=== PATIENT | male | born 1960 | race African-American/Black ===

== ENCOUNTER 2016-08-10 14:57 | Emergency (ER) | payer SELFPAY ==
[~2016-08-10] VITALS: Ht 182.9 cm; Wt 88.5 kg
[2016-08-10 14:59] VITALS: BP 130/75
--- NOTE | 2016-08-10 15:12 | NUR ---
PT PROVIDED WITH CLOTHING, AND IS REFUSING RESOURCES AT THIS TIME
--- NOTE | 2016-08-10 15:23 | NUR ---
PT WALKING AROUND ER, YELLING AT STAFF AND THREATENING STAFF. REFUSING TO LEAVE. SECURITY AT BEDSIDE. PT STATES "THERE'S A GOOD REASON THEY CALL ME PUNCHY". MD AT BEDSIDE.
--- NOTE | 2016-08-10 16:20 | NUR ---
DISCHARGE PAPERWORK SIGNED AND GIVEN TO PT. PT REFUSES DISCHARGE VITAL SIGNS, CONTINUING TO CURSE AT AND YELL AT STAFF. PT ESCORTED FROM ER BY SECURITY.
== END 2016-08-10 16:22 | disposition home or self-care (01) ==
LOC: ER 14:59
DX: F41.9 Anxiety disorder, unspecified (principal)
CPT/HCPCS: A4606; Z7610

== ENCOUNTER 2019-08-06 23:18 | Emergency (ER) | payer MEDICAID, OTHER ==
[~2019-08-06] VITALS: Ht 175.3 cm; Wt 90.7 kg
[2019-08-06 23:18] VITALS: BP 159/102
== END 2019-08-07 01:02 | disposition home or self-care (01) ==
LOC: ER 23:18
DX: Z43.6 Encounter for attention to other artificial openings of urinary tract (principal); F32.9 Major depressive disorder, single episode, unspecified

== ENCOUNTER 2019-08-08 20:36 | Emergency (ER) | payer MEDICAID ==
[~2019-08-08] VITALS: Ht 175.3 cm; Wt 81.6 kg
[2019-08-08] MEDS ORDERED: LIDOCAINE 2% JEL UROJET 10 ML MM ONE ×2 (20:52→21:00)
[2019-08-08 21:16] LABS: APPEARANCE,URINE Cloudy (CLEAR); BILIRUBIN,URINE MODERATE (NEGATIVE); BLOOD, URINE Large Ery/uL (NEGATIVE); COLOR,URINE Brown (YELLOW); KETONES,URINE Trace (NEGATIVE); LEUKOCYTE ESTERASE ,URINE Negative (NEGATIVE); NITRITE, URINE Positive (NEGATIVE); PROTEIN,URINE 100 mg/dl (NEGATIVE); UGLUCOSE Negative (NEGATIVE)
[2019-08-08 21:26] LABS: BASOPHILS # (AUTO) 0.1 /CMM (0.0-0.2); BASOPHILS % (AUTO) 0.7 % (0.0-2.0); EOSINOPHILS % (AUTO) 0.5 % (0.0-6.0); HEMATOCRIT 37 % (39-51); HEMOGLOBIN 12.7 g/dL (13.5-17.5); LYMPHOCYTES % (AUTO) 13.8 % (20.0-44.0); MEAN CORPUSCULAR HGB CONC 34 g/dl (31.0-36.0); MEAN CORPUSCULAR VOLUME 94 fL (80-96); MONOCYTES # (AUTO) 0.5 /CMM (0.1-1.30); MONOCYTES % (AUTO) 7.4 % (2.0-12.0); NEUTROPHILS # (AUTO) 5.5 /CMM (1.8-8.9); NEUTROPHILS % (AUTO) 77.6 % (43.0-81.0); PLATELET COUNT (AUTO) 250 /CMM (150-450); RED BLOOD CELL COUNT(AUTO) 3.93 MIL/uL (4.5-6.0); WHITE BLOOD COUNT (AUTO) 7.1 K/uL (4.3-11.0)
[2019-08-08] MEDS ORDERED: MORPHINE SULFATE INJ 2 MG/ML DISP.SYRIN IV ONE (21:30)
[2019-08-08] MEDS ORDERED: ONDANSETRON HCL/PF 4 MG/2 ML VIAL IVP ONE (21:30)
[2019-08-08] MEDS ORDERED: IV NS 0.9% 1,000 ML BAG IV ONE (21:30)
[2019-08-08 21:33] LABS: CALCIUM, SERUM 8.9 mg/dL (8.5-10.1); CREATININE 1.8 mg/dL (0.6-1.3); POTASSIUM 3.8 mmol/L (3.5-5.1)
[2019-08-08 21:36] LABS: RBC,URINE TOO NUMEROUS TO COUN /HPF (0-2)
[2019-08-08 21:37] LABS: BACTERIA,URINE 3+ /HPF (None Seen); SQUAMOUS EPITHELIAL CELL,UR Few /HPF (None Seen)
[2019-08-08 21:39] LABS: ALBUMIN 3.6 g/dL (3.4-5.0); BILIRUBIN,DIRECT 0.1 mg/dL (0.0-0.2); BILIRUBIN,TOTAL 0.3 mg/dL (0.2-1.0); TOTAL PROTEIN, SERUM 7.2 g/dL (6.4-8.2)
--- NOTE | 2019-08-08 21:43 | NUR ---
BIBS TO ER BED 12. AAOX4. NOT IN RESP DISTRESS. AMBULATORY. CAME IN FOR PUBIC PAIN D/T NO URINE OUTPUT FOR THE ENTIRE DAY. PT REPORTS THAT HE HAS ACATHERTER AND REMOVED IT EARLIER. FREDY CORTEZ WAS AT BEDSIDE FOR EVAL. ALCALA CATH INSERTED ORDERED WITH STRICT STERILE TECHNIQUE DURINF PROCEDURE. URINE NOTED BROWN AND CLOUDY. SENT TO LAB FOR TESTING. IV LINE OBTAINED ON L AC 18G, BLOOD DRAWN AND GIVEN TO RADIATION THERAPIST AT BEDSIDE. PT IS RELIEVED OF PAIN UPON INSERTION AND DRAINING URINE. OUTPUT NOTED AT 700ML. MADE AWARE. WILL CONTINUE TO MONITOR
[2019-08-08] MEDS ORDERED: ONDANSETRON HCL/PF 4 MG/2 ML VIAL ONE (21:48)
[2019-08-08] MEDS ORDERED: MORPHINE SULFATE INJ 4 MG/ML DISP.SYRIN ONE (21:49)
--- NOTE | 2019-08-08 21:50 | NUR ---
pt is not in pain at the time of administration. made aware and cancelled the give to meds
[2019-08-08] MEDS ORDERED: CEFTRIAXONE 1GM BAG (ER ONLY) 50 ML IV ONE (22:24)
[2019-08-08] MEDS ORDERED: CEFTRIAXONE 1GM BAG (ER ONLY) 1 GM/50 ML PIGGYBACK IV ONE (22:30)
--- NOTE | 2019-08-08 23:34 | NUR ---
Patient discharged to home in stable condition. Written and verbal after care instructions given. Patient verbalizes understanding of instruction.IV removed. Catheter intact and site benign. Pressure and 4x4 applied to site. No bleeding noted. Pt ambulatory with a steady gait
--- NOTE | 2019-08-08 23:40 | NUR ---
HOMELESS WAIVER SIGNED BY THE PT. FOOD PROVIDED AND TAP CARD
--- NOTE | 2019-08-08 23:41 | NUR ---
PT DISPENSED WITH LEG BAG AND CARE INSTRUCTION GIVEN TO PT. PT VERBALIZED UNDERSTANDING OF CATHETER CARE BY VERBALIZING BACK THE INSTRUCTION
[2019-08-08 23:42] VITALS: BP 143/92
== END 2019-08-08 23:43 | disposition home or self-care (01) ==
LOC: ER 20:41
DX: N28.9 Disorder of kidney and ureter, unspecified (principal); R33.9 Retention of urine, unspecified; N40.0 Benign prostatic hyperplasia without lower urinary tract symptoms; I10 Essential (primary) hypertension
CPT/HCPCS: 36415; 51702; 80048; 80076; 81001; 82550; 85025; 87086; 96374; 99284; J0696; J3490; J7030 ×2; 81000-TC; 82553; 87186-TC; J2270; J2405

== ENCOUNTER 2019-09-26 13:08 | Emergency (ER) | payer OTHER ==
[~2019-09-26] VITALS: Ht 170.2 cm; Wt 99.8 kg
[2019-09-26] MEDS ORDERED: LIDOCAINE 2% JEL UROJET 10 ML MM ONE (13:14)
[2019-09-26] MEDS ORDERED: HYDROCODONE/APAP 5/325MG TABLET PO ONE (13:30)
[2019-09-26 13:31] LABS: APPEARANCE,URINE CLOUDY (CLEAR); BILIRUBIN,URINE Negative (NEGATIVE); BLOOD, URINE Large Ery/uL (NEGATIVE); COLOR,URINE Yellow (YELLOW); KETONES,URINE Negative (NEGATIVE); LEUKOCYTE ESTERASE ,URINE Small (NEGATIVE); NITRITE, URINE Positive (NEGATIVE); PH,URINE 5.5 (5.0-8.0); PROTEIN,URINE 30 mg/dl (NEGATIVE); UGLUCOSE Negative (NEGATIVE); UROBILINOGEN,URINE 0.2 EU/dL (0.2)
[2019-09-26] MEDS ORDERED: HYDROCODONE/APAP 5/325MG TABLET ONE (13:31)
[2019-09-26 13:38] LABS: BACTERIA,URINE Few /HPF (None Seen); SQUAMOUS EPITHELIAL CELL,UR Few /HPF (None Seen); WBC,URINE 51-80 /HPF (0-3)
[2019-09-26] MEDS ORDERED: AMOX/CLAVULANATE 875 MG TABLET ONE (13:55)
[2019-09-26] MEDS ORDERED: AMOX/CLAVULANATE 875 MG TABLET PO ONE (14:00)
[2019-09-26 14:01] VITALS: BP 145/90
--- NOTE | 2019-09-26 14:02 | NUR ---
Naidu Cath in place draining cloudy UO-250cc. Converted drainage bag to leg bag. Pt instructed on use/change. For discharge Patient discharged to home in stable condition. Written and verbal after care instructions given. Patient verbalizes understanding of instruction.
== END 2019-09-26 14:02 | disposition home or self-care (01) ==
LOC: ER 13:10
DX: R33.9 Retention of urine, unspecified (principal); N30.00 Acute cystitis without hematuria; N40.0 Benign prostatic hyperplasia without lower urinary tract symptoms; Z59.0 Homelessness
CPT/HCPCS: 81001; 87086; 99283; J3490; 81000-TC; 87186-TC

== ENCOUNTER 2019-10-04 08:23 | Emergency (ER) | payer OTHER ==
[~2019-10-04] VITALS: Ht 177.8 cm; Wt 102.1 kg
--- NOTE | 2019-10-04 08:30 | NUR ---
CAME IN FOR LEAKING ALCALA CATHETER LEG BAG, TO ER BED 2, HOOKED TO MONITOR, CHANGED TO HOSP GOWN, WARM BLANKET PROVIDED, DR NICHOLE AT BEDSIDE
--- NOTE | 2019-10-04 08:39 | NUR ---
SEEN AND EXAMINED BY .
[2019-10-04 08:43] VITALS: BP 147/78
--- NOTE | 2019-10-04 09:10 | NUR ---
PT URINE SPECIMEN COLLECTED AND SENT TO LAB.
[2019-10-04 09:18] LABS: APPEARANCE,URINE Clear (CLEAR); BILIRUBIN,URINE Negative (NEGATIVE); BLOOD, URINE Small Ery/uL (NEGATIVE); COLOR,URINE Yellow (YELLOW); KETONES,URINE Negative (NEGATIVE); LEUKOCYTE ESTERASE ,URINE Trace (NEGATIVE); NITRITE, URINE Positive (NEGATIVE); PROTEIN,URINE 100 mg/dl (NEGATIVE); UGLUCOSE Negative (NEGATIVE)
[2019-10-04 09:27] LABS: BACTERIA,URINE Moderate /HPF (None Seen); RBC,URINE 0-2 /HPF (0-2); SQUAMOUS EPITHELIAL CELL,UR Few /HPF (None Seen)
[2019-10-04] MEDS ORDERED: LIDOCAINE /MPF 1% VIAL 5 ML VIAL ONE (09:43)
[2019-10-04] MEDS ORDERED: CEFTRIAXONE 1 G VIAL ONE (09:43)
[2019-10-04] MEDS ORDERED: CEFTRIAXONE 1 G VIAL IM ONE (10:00)
[2019-10-04] MEDS ORDERED: LIDOCAINE 2% 20 ML MDV TP ONE (10:00)
--- NOTE | 2019-10-04 10:27 | NUR ---
Patient discharged to home in stable condition. Written and verbal after care instructions given. Patient verbalizes understanding of instruction.
== END 2019-10-04 10:28 | disposition home or self-care (01) ==
LOC: ER 08:23
DX: N39.0 Urinary tract infection, site not specified (principal); T83.031A Leakage of indwelling urethral catheter, initial encounter; F32.9 Major depressive disorder, single episode, unspecified
CPT/HCPCS: 81001; 87086; 96372; 99283; J0696; J3490; 81000-TC; 87186-TC

== ENCOUNTER 2019-10-15 05:01 | Emergency (ER) | payer OTHER ==
[~2019-10-15] VITALS: Ht 175.3 cm; Wt 102.1 kg
[2019-10-15] MEDS ORDERED: LIDOCAINE 2% JEL UROJET 10 ML MM ONE (05:05)
--- NOTE | 2019-10-15 05:10 | NUR ---
PT AAOX4. AMBULATORY WITH STEDAY GAIT. BIBS C/O PULLED OUT HIS CATHETER AND INABILE TO URINATE. PLACED IN BED 7 ON MONITOR AND PULSE OX. VSS. NO ACUTE DISTRESS NOTED. AWAITING MD FOR EVAL AND ORDERS.
--- NOTE | 2019-10-15 05:12 | NUR ---
FR alexandra catheter inserted per sterile protocal. Immediate output 3220 ML of urine
[2019-10-15 05:40] LABS: APPEARANCE,URINE SL CLOUDY (CLEAR); BILIRUBIN,URINE NEGATIVE (NEGATIVE); BLOOD, URINE TRACE-INTA Ery/uL (NEGATIVE); COLOR,URINE YELLOW (YELLOW); KETONES,URINE NEGATIVE (NEGATIVE); LEUKOCYTE ESTERASE ,URINE TRACE (NEGATIVE); NITRITE, URINE NEGATIVE (NEGATIVE); PH,URINE 6.5 (5.0-8.0); PROTEIN,URINE TRACE mg/dl (NEGATIVE); UGLUCOSE NEGATIVE (NEGATIVE); UROBILINOGEN,URINE 0.2 EU/dL (0.2)
--- NOTE | 2019-10-15 05:45 | NUR ---
URINE COLLECTED AND SENT TO LAB
--- NOTE | 2019-10-15 05:45 | NUR ---
Patient is resting comfortably in bed. Easily aroused. VSS.
[2019-10-15 05:49] LABS: BACTERIA,URINE Few /HPF (None Seen); SQUAMOUS EPITHELIAL CELL,UR Rare /HPF (None Seen); WBC,URINE TOO NUMEROUS TO COUN /HPF (0-3)
[2019-10-15] MEDS ORDERED: CEFTRIAXONE 1GM BAG (ER ONLY) 50 ML IV ONE (06:22)
[2019-10-15] MEDS ORDERED: KETOROLAC TROMETHAMINE INJ 30 MG/ML VIAL IV ONE (06:30)
[2019-10-15] MEDS ORDERED: IV NS 0.9% 500 ML IV ONE (06:30)
[2019-10-15] MEDS ORDERED: CEFTRIAXONE 1 G in IV D5W 50 ML IV ONE (06:30)
[2019-10-15] MEDS ORDERED: KETOROLAC TROMETHAMINE 15 MG/ML VIAL ONE (06:32)
--- NOTE | 2019-10-15 07:00 | NUR ---
IVF NORMAL SALINE 500ML AND ROCEPHIN ENDTIME 0700H G20 RAC.
--- NOTE | 2019-10-15 07:03 | NUR ---
Urinary catheter leg bag placed. Awaiting fluids to finish. Pending discharge.
--- NOTE | 2019-10-15 07:16 | NUR ---
Patient discharged to home in stable condition. Written and verbal after care instructions given. Patient verbalizes understanding of instruction.
[2019-10-15 07:19] VITALS: BP 129/76
== END 2019-10-15 07:20 | disposition home or self-care (01) ==
LOC: ER 05:03
DX: N39.0 Urinary tract infection, site not specified (principal); R33.9 Retention of urine, unspecified; Z46.6 Encounter for fitting and adjustment of urinary device
CPT/HCPCS: 51702; 81001; 87077; 87086; 87186; 96365; 96375; 99284; J0696 ×2; J1885; J3490; J7040; J7060; 81000-TC; J7070

== ENCOUNTER 2019-11-20 18:55 | Emergency (ER) | payer MEDICAID, OTHER ==
[~2019-11-20] VITALS: Ht 175.3 cm; Wt 90.7 kg
--- NOTE | 2019-11-20 19:18 | NUR ---
PT AAOX4. BIBRA C/O URINARY RETENTION X2 DAYS. CATHETER WAS PULLED AND REPALCED.
[2019-11-20] MEDS ORDERED: LIDOCAINE 2% JEL UROJET 10 ML MM ONE ×2 (19:30→21:00)
[2019-11-20 19:54] LABS: BILIRUBIN,URINE Negative (NEGATIVE); BLOOD, URINE Large Ery/uL (NEGATIVE); KETONES,URINE Negative (NEGATIVE); LEUKOCYTE ESTERASE ,URINE Moderate (NEGATIVE); NITRITE, URINE Negative (NEGATIVE); PH,URINE 7.5 (5.0-8.0); PROTEIN,URINE >=300 mg/dl (NEGATIVE); UGLUCOSE Negative (NEGATIVE); UROBILINOGEN,URINE 0.2 EU/dL (0.2)
[2019-11-20 19:59] LABS: APPEARANCE,URINE CLOUDY (CLEAR); COLOR,URINE YELLOW (YELLOW)
[2019-11-20 20:06] LABS: BACTERIA,URINE 2+ /HPF (None Seen); SQUAMOUS EPITHELIAL CELL,UR Few /HPF (None Seen); WBC,URINE 21-50 /HPF (0-3)
--- NOTE | 2019-11-20 20:32 | NUR ---
Patient discharged to home in stable condition. Written and verbal after care instructions given. Patient verbalizes understanding of instruction and RX. Pt ambulated with steady gait. Denies pain.
[2019-11-20 20:33] VITALS: BP 147/81
== END 2019-11-20 21:09 | disposition home or self-care (01) ==
LOC: ER 18:58
DX: N39.0 Urinary tract infection, site not specified (principal); R33.9 Retention of urine, unspecified; Z59.0 Homelessness
CPT/HCPCS: 51702; 81001; 87077; 87086; 87186; 99284; J3490; 81000-TC

== ENCOUNTER 2019-12-01 01:07 | Emergency (ER) | payer MEDICAID, OTHER ==
[~2019-12-01] VITALS: Ht 175.3 cm; Wt 90.7 kg
[2019-12-01 01:09] VITALS: BP 154/89
== END 2019-12-01 02:24 | disposition home or self-care (01) ==
LOC: ER 01:08
DX: T83.098A Other mechanical complication of other urinary catheter, initial encounter (principal); Z59.0 Homelessness

== ENCOUNTER 2019-12-02 04:25 | Emergency (ER) | payer MEDICAID ==
[~2019-12-02] VITALS: Ht 175.3 cm; Wt 90.7 kg
[2019-12-02 04:25] VITALS: BP 132/76
[2019-12-02] MEDS ORDERED: LIDOCAINE 2% JEL UROJET 10 ML MM ONE ×2 (04:35→05:00)
--- NOTE | 2019-12-02 04:41 | NUR ---
PT AAOX4, BIBRA C/O BLADDER BEING FULL. PT WAS SEEN IN THE E.D. LAST NIGHT FOR THE SAME REASON. ASKED PT FOR ME TO REPALCE HIS CATHETER. PT REFUSED. PT ASKED FOR ME TO FLUSH THE CATHETER TO UNCLOG IT.
--- NOTE | 2019-12-02 04:45 | NUR ---
ALCALA CATHETER WAS FLUSHED W/ 30ML OF NS PER MD'S ORDER . CATHETER DRAINING CLEAR YELLOW URINE. PT REPORTED RELIEF OF PAIN
--- NOTE | 2019-12-02 04:49 | NUR ---
URINE SENT TO LAB
[2019-12-02 04:58] LABS: APPEARANCE,URINE CLOUDY (CLEAR); BILIRUBIN,URINE NEGATIVE (NEGATIVE); BLOOD, URINE LARGE Ery/uL (NEGATIVE); COLOR,URINE YELLOW (YELLOW); KETONES,URINE NEGATIVE (NEGATIVE); LEUKOCYTE ESTERASE ,URINE MODERATE (NEGATIVE); NITRITE, URINE POSITIVE (NEGATIVE); PROTEIN,URINE TRACE mg/dl (NEGATIVE); UGLUCOSE NEGATIVE (NEGATIVE); UROBILINOGEN,URINE 0.2 EU/dL (0.2)
[2019-12-02 05:09] LABS: BACTERIA,URINE Moderate /HPF (None Seen); RBC,URINE 21-50 /HPF (0-2); SQUAMOUS EPITHELIAL CELL,UR Rare /HPF (None Seen); WBC,URINE TOO NUMEROUS TO COUN /HPF (0-3)
--- NOTE | 2019-12-02 05:55 | NUR ---
PT IS MEDICALLY STABLE FOR D/C . rx and Patient discharged to home in stable condition. Written and verbal after care instructions given. Patient verbalizes understanding of instruction.
== END 2019-12-02 06:01 | disposition home or self-care (01) ==
LOC: ER 04:27
DX: N39.0 Urinary tract infection, site not specified (principal); F32.9 Major depressive disorder, single episode, unspecified; F17.200 Nicotine dependence, unspecified, uncomplicated; Z59.0 Homelessness
CPT/HCPCS: 81000-TC; 87086-TC; 87186-TC; J3490

== ENCOUNTER 2019-12-18 01:24 | Emergency (ER) | payer MEDICAID ==
[~2019-12-18] VITALS: Ht 175.3 cm; Wt 90.7 kg
[2019-12-18 01:27] VITALS: BP 144/85
[2019-12-18 02:11] LABS: APPEARANCE,URINE CLOUDY (CLEAR); BILIRUBIN,URINE NEGATIVE (NEGATIVE); BLOOD, URINE MODERATE Ery/uL (NEGATIVE); COLOR,URINE YELLOW (YELLOW); KETONES,URINE NEGATIVE (NEGATIVE); LEUKOCYTE ESTERASE ,URINE LARGE (NEGATIVE); NITRITE, URINE POSITIVE (NEGATIVE); PROTEIN,URINE 100 mg/dl (NEGATIVE); UGLUCOSE NEGATIVE (NEGATIVE); UROBILINOGEN,URINE 0.2 EU/dL (0.2)
[2019-12-18 02:31] LABS: BACTERIA,URINE Many /HPF (None Seen); SQUAMOUS EPITHELIAL CELL,UR Few /HPF (None Seen); TRIPLE PHOSPHATE CRYSTAL,UR Many /HPF (None Seen); WBC,URINE 81-100 /HPF (0-3)
== END 2019-12-18 02:42 | disposition home or self-care (01) ==
LOC: ER 01:24
DX: N39.0 Urinary tract infection, site not specified (principal); F32.9 Major depressive disorder, single episode, unspecified; Z59.0 Homelessness
CPT/HCPCS: 81000-TC; 87086-TC; 87186-TC

== ENCOUNTER 2019-12-24 18:30 | Emergency (ER) | payer MEDICAID, OTHER ==
[~2019-12-24] VITALS: Ht 175.3 cm; Wt 102.1 kg
[2019-12-24] MEDS ORDERED: LIDOCAINE 2% JEL UROJET 10 ML MM ONE (19:22)
--- NOTE | 2019-12-24 19:25 | NUR ---
alexandra catheter leaking and pain x 1 month, havent change since. PT AAOX4, VSS. RR EVEN & UNLABORED. PT C/O SEVERE LOWER ABD & PENILE AREA. PT SEEN & EVAL'D BY DR. MCDOWELL. WILL CONT TO MONITOR.
--- NOTE | 2019-12-24 19:30 | NUR ---
BLADDER SCAN: 330 ML, MD AWARE.
[2019-12-24] MEDS: LIDOCAINE 2% JEL UROJET 10 ML MM ONE (19:51)
--- NOTE | 2019-12-24 19:52 | NUR ---
PT HAD RELIEF AFTER ALCALA CATHETER INSERTION, NAD NOTED. PT MIRZA WELL.
[2019-12-24 19:57] LABS: APPEARANCE,URINE Clear (CLEAR); BILIRUBIN,URINE Negative (NEGATIVE); BLOOD, URINE Moderate Ery/uL (NEGATIVE); COLOR,URINE Yellow (YELLOW); KETONES,URINE Negative (NEGATIVE); LEUKOCYTE ESTERASE ,URINE Moderate (NEGATIVE); NITRITE, URINE Positive (NEGATIVE); PROTEIN,URINE Negative (NEGATIVE); UGLUCOSE Negative (NEGATIVE); UROBILINOGEN,URINE 0.2 EU/dL (0.2)
[2019-12-24] MEDS ORDERED: NITROFURANTOIN/NITROFURAN MAC 100 MG CAPSULE ONE (20:54)
[2019-12-24] MEDS: NITROFURANTOIN/NITROFURAN MAC 100 MG CAPSULE PO ONE (20:57)
[2019-12-24 21:08] LABS: BACTERIA,URINE Many /HPF (None Seen); MUCUS,URINE Few /LPF (None Seen); SQUAMOUS EPITHELIAL CELL,UR Rare /HPF (None Seen); WBC,URINE TOO NUMEROUS TO COUN /HPF (0-3)
--- NOTE | 2019-12-24 21:14 | NUR ---
Patient discharged to home in stable condition. Written and verbal after care instructions given. Patient verbalizes understanding of instruction.
[2019-12-24 21:15] VITALS: BP 132/87
== END 2019-12-24 21:15 | disposition home or self-care (01) ==
LOC: ER 18:30
DX: N39.0 Urinary tract infection, site not specified (principal); R33.9 Retention of urine, unspecified
CPT/HCPCS: 51702; 81001; 87077; 87086; 87186; 99284; J3490; 81000-TC

== ENCOUNTER 2020-01-16 04:52 | Emergency (ER) | payer OTHER ==
[~2020-01-16] VITALS: Ht 175.3 cm; Wt 102.1 kg
[2020-01-16 04:53] VITALS: BP 132/64
--- NOTE | 2020-01-16 05:07 | NUR ---
PT DOES NOT WISH TO BE EVALUATED
== END 2020-01-16 05:20 | disposition home or self-care (01) ==
LOC: ER 04:55
DX: Z46.6 Encounter for fitting and adjustment of urinary device (principal)

== ENCOUNTER 2020-01-22 16:41 | Emergency (ER) | payer OTHER ==
[~2020-01-22] VITALS: Ht 175.3 cm; Wt 90.7 kg
[2020-01-22 16:46] VITALS: BP 154/87
[2020-01-22] MEDS ORDERED: CEFTRIAXONE 1GM BAG (ER ONLY) 50 ML IV ONE (17:11)
--- NOTE | 2020-01-22 17:13 | NUR ---
URINE SENT TO LAB.
[2020-01-22] MEDS ORDERED: CEFTRIAXONE 1GM BAG (ER ONLY) 1 GM/50 ML PIGGYBACK IV ONE (17:30)
[2020-01-22 17:35] LABS: APPEARANCE,URINE Slightly Cloudy (CLEAR); BILIRUBIN,URINE Negative (NEGATIVE); BLOOD, URINE Small Ery/uL (NEGATIVE); COLOR,URINE Yellow (YELLOW); KETONES,URINE Negative (NEGATIVE); LEUKOCYTE ESTERASE ,URINE Small (NEGATIVE); NITRITE, URINE Negative (NEGATIVE); PROTEIN,URINE 30 mg/dl (NEGATIVE); UGLUCOSE Negative (NEGATIVE); UROBILINOGEN,URINE 0.2 EU/dL (0.2)
[2020-01-22 18:03] LABS: BACTERIA,URINE 2+ /HPF (None Seen); SQUAMOUS EPITHELIAL CELL,UR Few /HPF (None Seen)
--- NOTE | 2020-01-22 18:37 | NUR ---
IV removed. Catheter intact and site benign. Pressure and 4x4 applied to site. No bleeding noted.Patient discharged to home in stable condition. Written and verbal after care instructions given. Patient verbalizes understanding of instruction.
== END 2020-01-22 18:39 | disposition home or self-care (01) ==
LOC: ER 16:46
DX: N39.0 Urinary tract infection, site not specified (principal)
CPT/HCPCS: 81001; 87086; 87186; 96365; 99284; J0696; 81000-TC

== ENCOUNTER 2020-02-24 09:16 | Emergency (ER) | payer OTHER ==
[~2020-02-24] VITALS: Ht 172.7 cm; Wt 86.2 kg
--- NOTE | 2020-02-24 09:30 | NUR ---
PT CAME to ER with alexandra catheter in place [employer] LE[employer]ER. pt c.o foul smelling urine and feeling of depress. no SI. no c/o pain or discomfort. no fever. awaiting for MD andrew
--- NOTE | 2020-02-24 09:31 | NUR ---
AT BEDSIDE FOR EVAL
--- NOTE | 2020-02-24 09:31 | NUR ---
URINE COLLECTED AND SENT TO LAB
[2020-02-24 09:45] LABS: BILIRUBIN,URINE NEGATIVE (NEGATIVE); BLOOD, URINE LARGE Ery/uL (NEGATIVE); COLOR,URINE DARK YELLOW (YELLOW); LEUKOCYTE ESTERASE ,URINE TRACE (NEGATIVE); NITRITE, URINE POSITIVE (NEGATIVE); PROTEIN,URINE 100 mg/dl (NEGATIVE); UGLUCOSE NEGATIVE (NEGATIVE); UROBILINOGEN,URINE 0.2 EU/dL (0.2)
[2020-02-24 09:50] LABS: BACTERIA,URINE 1+ /HPF (None Seen); SQUAMOUS EPITHELIAL CELL,UR Rare /HPF (None Seen)
[2020-02-24 09:53] VITALS: BP 172/109
== END 2020-02-24 09:53 | disposition home or self-care (01) ==
LOC: ER 09:16
DX: N39.0 Urinary tract infection, site not specified (principal)
CPT/HCPCS: 81001; 87086-TC

== ENCOUNTER 2020-03-14 16:19 | Emergency (ER) | payer OTHER ==
[~2020-03-14] VITALS: Ht 167.6 cm; Wt 70.3 kg
[2020-03-14 16:32] VITALS: BP 145/80
--- NOTE | 2020-03-14 16:40 | NUR ---
SEEN AND EXAMINED BY MAXWELL KNIGHT
[2020-03-14] MEDS ORDERED: LIDOCAINE 2% JEL UROJET 10 ML MM ONE ×2 (16:41→17:00)
--- NOTE | 2020-03-14 18:00 | NUR ---
Patient does not wish to proceed with medical care recommended. Patient given information related to possible complications, up to and including , which could occur as a result of leaving the hospital at this time. Patient verbalizes understanding of risks involved due to leaving against medical advice. Patient has signed AMA form. Pt ambulated out of E.D.
[2020-03-14 18:12] LABS: BILIRUBIN,URINE MODERATE (NEGATIVE); BLOOD, URINE LARGE Ery/uL (NEGATIVE); COLOR,URINE YELLOW (YELLOW); LEUKOCYTE ESTERASE ,URINE MODERATE (NEGATIVE); NITRITE, URINE POSITIVE (NEGATIVE); PROTEIN,URINE >=300 mg/dl (NEGATIVE); UGLUCOSE NEGATIVE (NEGATIVE)
[2020-03-14 18:22] LABS: BACTERIA,URINE 3+ /HPF (None Seen); RBC,URINE 21-50 /HPF (0-2); SQUAMOUS EPITHELIAL CELL,UR 0-2 /HPF (None Seen); WBC,URINE TOO NUMEROUS TO COUN /HPF (0-3)
[2020-03-14] MEDS ORDERED: MEROPENEM 1,000 MG in IV NS 0.9% 100 ML IV ONE (19:00)
== END 2020-03-14 20:31 | disposition left against medical advice (07) ==
LOC: ER 16:24
DX: N39.0 Urinary tract infection, site not specified (principal); B99.8 Other infectious disease; Z16.39 Resistance to other specified antimicrobial drug
CPT/HCPCS: 81001; 87086; 87186 ×2; 99283; J3490; J7030; J2185

== ENCOUNTER 2020-03-27 18:36 | Emergency (ER) | payer OTHER ==
[~2020-03-27] VITALS: Ht 175.3 cm; Wt 83.9 kg
[2020-03-27 19:05] VITALS: BP 181/83
[2020-03-27] MEDS ORDERED: CEPHALEXIN MONOHYDRATE 500 MG CAPSULE PO ONE ×2 (19:18→19:30)
[2020-03-27] MEDS ORDERED: NITROFURANTOIN/NITROFURAN MAC 100 MG CAPSULE ONE (19:18)
--- NOTE | 2020-03-27 19:27 | NUR ---
Patient discharged to home in stable condition. Written and verbal after care instructions given. Patient verbalizes understanding of instruction.
[2020-03-27] MEDS ORDERED: NITROFURANTOIN/NITROFURAN MAC 100 MG CAPSULE PO ONE (19:30)
== END 2020-03-27 19:26 | disposition home or self-care (01) ==
LOC: ER 18:42
DX: N39.0 Urinary tract infection, site not specified (principal); B99.8 Other infectious disease; Z16.39 Resistance to other specified antimicrobial drug

== ENCOUNTER 2020-04-22 19:50 | Emergency (ER) | payer OTHER ==
[~2020-04-22] VITALS: Ht 175.3 cm; Wt 79.4 kg
--- NOTE | 2020-04-22 20:39 | NUR ---
BIBS FOR C/O RLE PAIN AND SWELLING SINCE AM, DENIES FALL OR TRAUMA TO ER BED 13, PROVIDER AT BEDSIDE FOR EVAL
--- NOTE | 2020-04-22 20:41 | NUR ---
IV ESTABLISHED L AC 20G, BLOOD WORK COLLECTED, SENT TO LAB.
[2020-04-22] MEDS ORDERED: ACETAMINOPHEN ES 500 MG TABLET ONE (20:53)
[2020-04-22] MEDS ORDERED: IV NS 0.9% 1,000 ML BAG IV ONE ×2 (21:00→23:30)
[2020-04-22] MEDS ORDERED: ACETAMINOPHEN ES 500 MG TABLET PO ONE (21:00)
[2020-04-22 21:08] LABS: BASOPHILS % (AUTO) 0.1 % (0.0-2.0); HEMATOCRIT 42 % (39-51); LYMPHOCYTES # (AUTO) 0.6 /CMM (0.8-4.8); LYMPHOCYTES % (AUTO) 4.5 % (20.0-44.0); MEAN CORPUSCULAR HGB CONC 34 g/dl (31.0-36.0); MEAN CORPUSCULAR VOLUME 93 fL (80-96); MONOCYTES % (AUTO) 7.5 % (2.0-12.0); NEUTROPHILS # (AUTO) 11.7 /CMM (1.8-8.9); NEUTROPHILS % (AUTO) 87.9 % (43.0-81.0); PLATELET COUNT (AUTO) 220 /CMM (150-450); RED BLOOD CELL COUNT(AUTO) 4.51 MIL/uL (4.5-6.0); WHITE BLOOD COUNT (AUTO) 13.3 K/uL (4.3-11.0)
[2020-04-22 21:28] LABS: ALBUMIN 3.1 g/dL (3.4-5.0); BILIRUBIN,DIRECT 0.2 mg/dL (0.0-0.2); BILIRUBIN,TOTAL 0.5 mg/dL (0.2-1.0); CALCIUM, SERUM 9.2 mg/dL (8.5-10.1); POTASSIUM 3.7 mmol/L (3.5-5.1); TOTAL PROTEIN, SERUM 8.6 g/dL (6.4-8.2)
[2020-04-22 21:31] LABS: BILIRUBIN,URINE SMALL (NEGATIVE); COLOR,URINE ORANGE (YELLOW); LEUKOCYTE ESTERASE ,URINE Large (NEGATIVE); NITRITE, URINE Negative (NEGATIVE); PROTEIN,URINE >=300 mg/dl (NEGATIVE); UGLUCOSE Negative (NEGATIVE); UROBILINOGEN,URINE 0.2 EU/dL (0.2)
[2020-04-22 21:48] LABS: PH,URINE >8.5 (5.0-8.0)
[2020-04-22 21:52] LABS: BACTERIA,URINE 3+ /HPF (None Seen); RBC,URINE NONE SEEN /HPF (0-2); SQUAMOUS EPITHELIAL CELL,UR Few /HPF (None Seen); WBC,URINE TOO NUMEROUS TO COUN /HPF (0-3)
[2020-04-22] MEDS ORDERED: CEFTRIAXONE 1GM BAG (ER ONLY) 1 GM/50 ML PIGGYBACK IV ONE (22:00)
[2020-04-22] MEDS ORDERED: MORPHINE SULFATE INJ 4 MG/ML DISP.SYRIN ONE (22:29)
[2020-04-22] MEDS ORDERED: CEFTRIAXONE 1GM BAG (ER ONLY) 50 ML IV ONE (22:29)
[2020-04-22] MEDS ORDERED: MORPHINE SULFATE INJ 2 MG/ML DISP.SYRIN IV ONE (22:30)
--- NOTE | 2020-04-22 23:21 | NUR ---
FREDY SYKES SPEAKING WITH [facility] MD
--- NOTE | 2020-04-22 23:48 | NUR ---
INFORMED DR. LAMB OF NEGATIVE COVID RESULTS. PER DR. LAMB, ACCEPTED TO TRANSFER TO [facility]
--- NOTE | 2020-04-23 00:10 | NUR ---
PT RESTING COMFORTABLY. VSS.
--- NOTE | 2020-04-23 02:08 | NUR ---
PT WILL BE TRANSFERRED TO [facility] PER INSURANCE REQUEST NUMBER FOR REPORT: [phone] COVERAGE SPECIALIST RN WILL CALL BACK WITH TRANSPORTATION ETA
--- NOTE | 2020-04-23 02:08 | NUR ---
Debbi crystal in [facility] - 04/23/20 at 0212 by [facility] PT WILL BE TRANSFERRED TO [facility] INSURANCE REQUEST NUMBER FOR REPORT: [phone]
--- NOTE | 2020-04-23 02:52 | NUR ---
[facility] ETA 45MINUTES Addendum: 04/23/20 at 0305 by [facility] AUTH FOR TRANSPORTATION #[id number]
--- NOTE | 2020-04-23 02:54 | NUR ---
REPORT CALLED TO ZHANG SULLIVAN @ [facility] ER REGARDING PT TRANSFER.
[2020-04-23 03:20] VITALS: BP 132/91
--- NOTE | 2020-04-23 03:43 | NUR ---
PT TRANSFERED TO [place]. VSS.
== END 2020-04-23 03:46 | disposition short-term general hospital (02) ==
LOC: ER 19:54
DX: L03.115 Cellulitis of right lower limb (principal); N39.0 Urinary tract infection, site not specified; N17.9 Acute kidney failure, unspecified; I10 Essential (primary) hypertension; E87.1 Hypo-osmolality and hyponatremia; E87.8 Other disorders of electrolyte and fluid balance, not elsewhere classified; R00.0 Tachycardia, unspecified; N40.0 Benign prostatic hyperplasia without lower urinary tract symptoms; Z20.822 Contact with and (suspected) exposure to COVID-19
CPT/HCPCS: 36415; 51702; 71045; 80048; 80076; 81001; 83605 ×2; 85025; 87040 ×2; 87081; 87426; 93005; 93971; 96361 ×2; 96365; 96375; 99285; C9803; J0696; J2270; J7030 ×2